=== PATIENT | male | born 1975 | race Caucasian/White ===

== ENCOUNTER 2017-06-26 06:48 | Day surgery (SDC) | payer OTHER ==
[2017-06-26] MEDS ORDERED: LIDOCAINE 2% INJ 100 MG/5 ML SDV (FOR ANES.) As Ordered (06:58)
[2017-06-26] MEDS ORDERED: PROPOFOL 200 MG/20 ML VIAL As Ordered ×2 (06:58→07:41)
[2017-06-26] MEDS: NS 1,000 ML IV (07:26)
== END 2017-06-26 08:31 | disposition home or self-care (01) ==
LOC: M OPP 06:48
DX: Z12.11 Encounter for screening for malignant neoplasm of colon (principal); Z80.0 Family history of malignant neoplasm of digestive organs; D12.5 Benign neoplasm of sigmoid colon; M19.90 Unspecified osteoarthritis, unspecified site; Z83.71 Family history of colonic polyps; Z80.8 Family history of malignant neoplasm of other organs or systems; Z87.891 Personal history of nicotine dependence
CPT/HCPCS: 45385

== ENCOUNTER → 2022-06-06 | Outpatient (CLI) | payer OTHER ==
[~2022-06-06] MED LIST: MOBI4TAB PO
== END ==
LOC: M CARPUL 10:22
PROVIDERS: ATTEND Family Medicine
DX: H81.4 Vertigo of central origin (principal); I77.819 Aortic ectasia, unspecified site

== ENCOUNTER 2023-02-14 09:15 | Day surgery (SDC) | payer OTHER ==
[~2023-02-14] VITALS: Ht 190.5 cm; Wt 119.7 kg
[~2023-02-14 09:15] MED LIST changes: +AMIT-253 PO; +LIDOCAINE 2% 100MG/5ML SDV (FOR ANES.) As Ordered ONE; +NS 1,000 ML IV ONE; +propofoL 200 MG/20 ML VIAL As Ordered ONE
[2023-02-14 11:24] VITALS: TEMP 96.5
[2023-02-14 11:49] VITALS: BP 109/56; O2SAT 99
== END 2023-02-14 11:50 | disposition home or self-care (01) ==
LOC: M OPP 09:15
PROVIDERS: ATTEND Internal Medicine Gastroenterology
DX: Z12.11 Encounter for screening for malignant neoplasm of colon (principal); Z86.010 Personal history of colon polyps; Z80.0 Family history of malignant neoplasm of digestive organs; D12.4 Benign neoplasm of descending colon; K63.5 Polyp of colon; K57.30 Diverticulosis of large intestine without perforation or abscess without bleeding; K64.4 Residual hemorrhoidal skin tags; K64.8 Other hemorrhoids; G47.30 Sleep apnea, unspecified; Z99.89 Dependence on other enabling machines and devices; Z87.891 Personal history of nicotine dependence; Z79.899 Other long term (current) drug therapy